=== PATIENT | female | born 2000 | race Hispanic/Latino ===

== ENCOUNTER 2023-02-16 21:04 | Emergency (ER) | payer OTHER ==
[2023-02-16 22:52] LABS: Absolute Lymphocytes (CBC) 1.9 K/uL (0.7-4.9); Hematocrit 39.8 % (36.0-45.0); Lymphocytes % 18.8 % (15.3-44.8); MCV 87.6 fL (80-100); MPV 7.7 fL (7.6-11.3); Platelets 281 thou/uL (152-406); RBC Red Blood Cell Count 4.54 M/uL (3.86-4.86)
[2023-02-16 22:54] LABS: Specific Gravity 1.005 (1.005-1.030); Specific Gravity < 1.005 (1.005-1.030); Urine Bilirubin NEGATIVE (Negative); Urine Blood Negative (Negative); Urine Clarity Clear (Clear); Urine Color Colorless (Yellow); Urine Glucose NEGATIVE (Negative); Urine Protein NEGATIVE (Negative); Urine Urobilinogen Normal (Normal)
[2023-02-16 23:47] LABS: Potassium 3.9 mEq/L (3.5-5.1)
--- NOTE | 2023-02-17 00:07 | EDPHYS ---
Physician Documentation [facility] Name: Caroline Powers Age: 22 yrs Sex: Female : 2000 Arrival Date: 02/16/2023 Time: 21:04 Bed 12 Private MD: ED Physician Dony Carballo HPI: 02/17 00:07 This 22 yrs old Female presents to ER via Ambulatory with complaints of EST 6 kb WKS GESTATION, Dizziness, General Weakness. 00:07 The patient presents to the emergency department with abdominal pain. The estimated kb gestational age is 5 weeks. course: care: none. Previous pregnancies: the patient has never been . Associated signs and symptoms: Pertinent positives: abdominal pain, Pertinent negatives: vaginal bleeding. The patient has not experienced similar symptoms in the past. The patient has not recently seen a physician. 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 - Social history:: Smoking status: Patient denies any tobacco usage or history of. ROS: 23:59 Constitutional: Negative for fever, chills, and weight loss. kb 23:59 Abdomen/GI: Positive for abdominal pain, Negative for nausea, vomiting, and diarrhea. 23:59 All other systems are negative. Exam: 23:59 Constitutional: This is a well developed, well nourished patient who is awake, alert, kb and in no acute distress. Head/Face: Normocephalic, atraumatic. ENT: Moist Mucous membranes Cardiovascular: Regular rate and rhythm with a normal S1 and S2. No gallops, murmurs, or rubs. No pulse deficits. Respiratory: Respirations even and unlabored. No increased work of breathing. Talking in full sentences Skin: Warm, dry with normal turgor. Normal color. MS/ Extremity: Pulses equal, no cyanosis. Neurovascular intact. Full, normal range of motion. Neuro: Awake and alert, GCS 15, oriented to person, place, time, and situation. Moves all extremities. Normal gait. 23:59 Abdomen/GI: Inspection: abdomen appears normal, Bowel sounds: normal, Palpation: soft, in all quadrants, mild abdominal tenderness, in the right lower quadrant and left lower quadrant. Vital Signs: 21:25 BP 117 / 68; Pulse 97; Resp 18; Temp 98.9; Pulse Ox 100% ; Weight 56.7 kg; Height 5 ft. vc1 1 in. ; Pain 03/04; 02/17 00:27 BP 131 / 80; Pulse 95; Resp 18; Temp 98.4(TE); Pulse Ox 99% on R/A; kl 02/16 21:25 Body Mass Index 23.62 (56.70 kg, 154.94 cm) vc1 02/16 21:25 Pain Scale: Adult vc1 MDM: 02/16 21:19 Patient medically screened. kb 23:59 Data reviewed: vital signs, nurses notes. 02/17 00:07 Differential diagnosis: threatened Ab, inevitable Ab, missed Ab, ectopic . kb Counseling: I had a detailed discussion with the patient and/or guardian regarding the historical points, exam findings, and any diagnostic results supporting the discharge/admit diagnosis, lab results, radiology results, the need for outpatient follow up, an OB/Gyne specialist, to return to the emergency department if symptoms worsen or persist or if there are any questions or concerns that arise at home. 02/16 21:35 Order name: Abo/rh Typing; Complete Time: 23:19 kb 02/16 21:35 Order name: Basic Metabolic Panel; Complete Time: 23:50 kb 02/16 21:35 Order name: CBC with Diff; Complete Time: 23:40 kb 02/16 21:35 Order name: Test, Urine; Complete Time: 22:59 kb 02/16 21:35 Order name: Quantitative Hcg; Complete Time: 23:50 kb 02/16 21:35 Order name: Urinalysis w/ reflexes; Complete Time: 22:59 kb 02/16 21:35 Order name: US Transvaginal Ob 02/16 21:35 Order name: IV Saline Lock; Complete Time: 22:46 kb 02/16 21:35 Order name: Labs collected and sent; Complete Time: 22:46 kb Administered Medications: No medications were administered Disposition: 02:27 Co-signature as Attending Physician, Dony Carballo MD I agree with the assessment sp4 and plan of care. I reviewed the patient's care provided by the Advanced Practice Provider and agree with the diagnosis and treatment plan. Disposition Summary: 02/17/23 00:06 Discharge Ordered Location: Home kb Condition: Stable kb Diagnosis - Less than 8 weeks gestation of kb - Lower abdominal pain, unspecified kb Followup: kb - With: Emergency Department - When: As needed - Reason: Worsening of condition Followup: kb - With: Private Physician - When: 2 - 3 days - Reason: Recheck today's complaints, Continuance of care, Re-evaluation by your physician Discharge Instructions: - Discharge Summary Sheet kb - Abdominal Pain During kb Forms: - Medication Reconciliation Form kb - Thank You Letter kb - Antibiotic Education kb - Prescription Opioid Use kb - Patient Portal Instructions kb - Leadership Thank You Letter kb Signatures: Dispatcher [employer] Maude Márquez, PROCESS CONTROLLER-C PROCESS CONTROLLER-Maggie Hadley RN RN vc1 Dony Carballo MD MD sp4
--- NOTE | 2023-02-17 00:07 | ER ---
Nurse's Notes [facility] Name: Caroline Powers Age: 22 yrs Sex: Female : 2000 Arrival Date: 02/16/2023 Time: 21:04 Bed 12 Private MD: Diagnosis: Less than 8 weeks gestation of ;Lower abdominal pain, unspecified Presentation: 02/16 21:25 Chief complaint: Patient states: I'm cramping and I am 6 weeks . Coronavirus vc1 screen: Vaccine status: Patient reports receiving the 2nd dose of the covid vaccine. plus booster; Moderna Client denies travel out of the [place] in the last 14 days. At this time, the client does not indicate any symptoms associated with coronavirus-19. Ebola Screen: Patient negative for fever greater than or equal to 101.5 degrees Fahrenheit, and additional compatible Ebola Virus Disease symptoms Patient denies exposure to infectious person. Patient denies travel to an Ebola-affected area in the 21 days before illness onset. No symptoms or risks identified at this time. Initial Sepsis Screen: Does the patient meet any 2 criteria? No. Patient's initial sepsis screen is negative. Does the patient have a suspected source of infection? No. Patient's initial sepsis screen is negative. Risk Assessment: Do you want to hurt yourself or someone else? Patient reports no desire to harm self or others. Onset of symptoms was February 16, 2023. 21:25 Method Of Arrival: Ambulatory vc1 21:25 Acuity: QUINTON 4 vc1 Triage Assessment: 21:27 General: Appears in no apparent distress. uncomfortable, Behavior is calm, cooperative, vc1 appropriate for age. Pain: Complains of pain in suprapubic area, right lower quadrant and left lower quadrant Pain does not radiate. Pain currently is 9 out of 10 on a pain scale. Quality of pain is described as crampy. Neuro: No deficits noted. Cardiovascular: No deficits noted. Respiratory: No deficits noted. : Denies vaginal bleeding. : Reports cramping, Denies burning with urination, urinary frequency. 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 - Social history:: Smoking status: Patient denies any tobacco usage or history of. Screenin/26 00:26 [facility] ED Fall Risk Assessment (Adult) History of falling in the last 3 months, kl including since admission No falls in past 3 months (0 pts) Confusion or Disorientation No (0 pts) Intoxicated or Sedated No (0 pts) Impaired Gait No (0 pts) Mobility Assist Device Used No (0 pt) Altered Elimination No (0 pt) Score/Fall Risk Level 0 - 2 = Low Risk Oriented to surroundings, Maintained a safe environment. Abuse screen: Denies threats or abuse. Nutritional screening: No deficits noted. Tuberculosis screening: No symptoms or risk factors identified. Assessment: 00:26 Reassessment: Patient appears in no apparent distress at this time. General: Behavior kl is calm, cooperative. Pain: Complains of pain in left lower quadrant and right lower quadrant Pain currently is 1 out of 10 on a pain scale. Neuro: No deficits noted. Cardiovascular: No deficits noted. Respiratory: No deficits noted. GI: Patient currently denies nausea, vomiting. : No deficits noted. No signs and/or symptoms were reported regarding the genitourinary system. Vital Signs: 02/16 21:25 BP 117 / 68; Pulse 97; Resp 18; Temp 98.9; Pulse Ox 100% ; Weight 56.7 kg; Height 5 ft. vc1 1 in. ; Pain 9/10; 02/17 00:27 BP 131 / 80; Pulse 95; Resp 18; Temp 98.4(TE); Pulse Ox 99% on R/A; kl 02/16 21:25 Body Mass Index 23.62 (56.70 kg, 154.94 cm) vc1 02/16 21:25 Pain Scale: Adult vc1 ED Course: 02/16 21:12 Patient arrived in ED. [id number] 21:19 Maude Dash FNP-C is PHCP. kb 21:19 Dony Carballo MD is Attending Physician. kb 21:27 Triage completed. vc1 21:27 Arm band placed on left wrist. vc1 22:35 US Transvaginal Ob In Process Unspecified. EDMS 22:46 Inserted saline lock: 20 gauge in right antecubital area, using aseptic technique. rv1 Blood collected. 22:46 Abo/rh Typing Sent. rv1 22:46 Basic Metabolic Panel Sent. rv1 22:46 CBC with Diff Sent. rv1 22:46 Test, Urine Sent. rv1 22:46 Quantitative Hcg Sent. rv1 22:46 Urinalysis w/ reflexes Sent. rv1 08 00:27 No provider procedures requiring assistance completed. IV discontinued, intact, kl bleeding controlled, No redness/swelling at site. Pressure dressing applied. Administered Medications: No medications were administered Medication: 00:27 VIS not applicable for this client. kl Outcome: 00:06 Discharge ordered by MD. kb 00:27 Discharged to home ambulatory. kl 00:27 Condition: stable 00:27 Discharge instructions given to patient, Instructed on discharge instructions, follow up and referral plans. Demonstrated understanding of instructions, follow-up care, medications. 00:27 Patient left the ED. kl Signatures: Dispatcher [employer] [facility] Maued Dash, PERSONAL LINES UNDERWRITER-C PERSONAL LINES UNDERWRITER-Mikki Romero, Amarilys Krause [id number] Maggie Singer RN RN vc1 Bernie Herman rv1
[2023-02-17 01:07] VITALS: BP 131/80; TEMP 98.4; O2SAT 99
--- NOTE | 2023-02-17 22:13 | RAD REPORT ---
EXAM DESCRIPTION: US - Transvaginal OB - 02/16/2023 10:33 pm CLINICAL HISTORY: 22 years Female, r/o ectopic COMPARISON: None. TECHNIQUE: Complete first trimester obstetrical ultrasound obtained with transvaginal imaging. FINDINGS: Uterus: The uterus measures 6.9 x 3.5 x 4.6 cm. Gestational sac: Possible gestational sac within the endometrium measuring 0.36 cm. pole: Not identified. heart motion: Not identified. Yolk sac: Not identified. Placenta: Not identified. Estimated Delivery Date: Not identified. Right ovary: The right ovary measures 1.8 x 1.2 x 1.7 cm. Left ovary: The left ovary measures 2.4 x 2.2 x 2.6 cm. Bilateral ovaries follicles, the largest on t he left measuring 0.9 cm. Adnexa: No additional adnexal findings. Free fluid: Trace free fluid. Duplex imaging: Color and spectral Doppler imaging demonstrates blood flow within the ovaries. IMPRESSION: 1. Possible intrauterine gestational sac with a mean sac diameter of 0.36 cm compatible with an estimated gestational age of 5 weeks, 0 days. No pole identified. Differential consider ations include early normal , pseudogestational sac of ectopic , and anembryonic pr egnancy. Close continued clinical, laboratory, and sonographic follow-up recommended. Electronically signed by: Anthony Anthony 02/16/2023 11:47 PM CDT Due to temporary technical issues with the PACS/Fluency reporting system, reports are being signed by the in house radiologists without review as a courtesy to insure prompt reporting. The interpreting radiologist is fully responsible for the content of the report.
== END 2023-02-17 00:27 | disposition home or self-care (01) ==
LOC: ER 21:04
DX: O26.891 Other specified pregnancy related conditions, first trimester (principal); Z3A.01 Less than 8 weeks gestation of pregnancy
CPT/HCPCS: 36415; 76817; 80048; 81003; 81025; 84702; 85025; 86900; 86901; 99284